=== PATIENT | female | born 1955 | race Caucasian/White ===

== ENCOUNTER → 2016-11-29 | Outpatient (CLI) | payer BC ==
[~2016-11-29] MED LIST: CERTAGEN PO; DOXYCYCLINE PO
--- NOTE | ~2016-11-29 | MY11 ---
[facility] A Service of [facility] & [facility] RADIOLOGY TEXT RESULTS PATIENT: YNES CAO LOCATION: [facility] : 59 UNIT #: [id number] AGE: [address]: Yas Bowling MD SEX: F ORDER DR: [id number] [facility] [address] [facility]. [address] [id number] O MR#: [id number] Acc #: [id number] NAME: YNES CAO : 1955 SEX: F STUDY DATE/TIME: 11/29/2016 7:39 UNIT: [facility] ROOM: STUDY DESCRIPTION: MY Mammogram Screening Dig Quinn Attending Physician: Yas Bowling M.D. Referring Physician: Yas Bowling M.D. Ordering Physician: Yas Bowling M.D. Primary Care Physician: No Primary Care Physician MEDICAL IMAGING REPORT This report is preliminary unless electronic signature is present EXAM Bilateral digital screening mammogram with CAD, 11/29/2016. HISTORY 61-year-old female for routine screening. No reported problems. No personal history of breast cancer. Family history positive in a paternal aunt. No surgeries. TECHNIQUE CC and MLO views of the breasts were obtained and reviewed with an FDA-approved CAD device. COMPARISON STUDIES 12/12/2015, 11/27/2015, 09/30/2014, 04/14/2013. FINDINGS Breast parenchyma is composed of scattered fibroglandular densities. The pattern is unchanged. There is a new 18-mm oval-shaped density in the upper outer right breast at middle third depth. This may represent interval development of a cyst. Suggest further evaluation with targeted ultrasound, as additional mammographic views are probably not going to yield additional diagnostic information. There is otherwise no new dominant nodule, mass, or suspicious cluster of microcalcifications. Benign-appearing nodularity otherwise present in both breasts, not significantly changed. IMPRESSION 18-mm oval-shaped nodular density in the upper outer right breast. Further evaluation with targeted ultrasound is recommended. Patients over the age of 40 are entered into a reminder system with target due date for the next mammogram. A result letter will also be sent to the [facility] A Service of [facility] & [facility] RADIOLOGY TEXT RESULTS PATIENT: YNES CAO LOCATION: [facility] : 59 UNIT #: [id number] AGE: [address]: Yas Bowling MD SEX: F ORDER DR: patient. BIRADS: 0 Incomplete; need additional imaging evaluation and/or prior mammograms for comparison. Dictated by... Faisal Miramontes M.D. THIS IS AN ELECTRONICALLY VERIFIED REPORT Faisal Miramontes M.D. at 11/29/2016 5:16 PM Jm TD: 11/29/2016 11:50 JOB #: [id number] MEDICAL IMAGING REPORT COPY
== END | disposition home or self-care (01) ==
LOC: CWCC 07:20
DX: Z12.31 Encounter for screening mammogram for malignant neoplasm of breast (principal); Z80.3 Family history of malignant neoplasm of breast; N63 Unspecified lump in breast
CPT/HCPCS: G0202

== ENCOUNTER → 2016-12-05 | Outpatient (CLI) | payer BC ==
--- NOTE | ~2016-12-05 | US24 ---
[facility] A Service of [facility] & [facility] RADIOLOGY TEXT RESULTS PATIENT: YNES CAO LOCATION: [facility] : 59 UNIT #: [id number] AGE: [address]: Yas Bowling MD SEX: F ORDER DR: [id number] [facility] [address] [place], [place] [address] [id number] O MR#: [id number] Acc #: [id number] NAME: YNES CAO : 1955 SEX: F STUDY DATE/TIME: 12/05/2016 12:53 UNIT: [facility] ROOM: STUDY DESCRIPTION: US Breast Unilateral Attending Physician: Yas Bowling M.D. Referring Physician: Yas Bowling M.D. Ordering Physician: Yas Bowling M.D. Primary Care Physician: Yas Bowling M.D. MEDICAL IMAGING REPORT This report is preliminary unless electronic signature is present EXAM Targeted ultrasound of the right breast 12/05/2016 INDICATIONS 61-year-old female recalled for ultrasound of the upper outer right breast secondary to a new asymmetry in the upper outer quadrant of the right breast on the screening mammogram performed 11/29/2016. TECHNIQUE Targeted ultrasound of the upper outer right breast was performed. COMPARISON Correlation is made with a recent mammogram of 11/29/2016 and prior mammogram 12/12/2015 FINDINGS Ultrasound findings: Right breast: The patient was initially scanned by the technologist and then rescanned in my presence. Imaging of the upper outer right breast with attention to the 9 o'clock position demonstrates a benign cyst measuring 11 x 11 x 7 mm corresponding to the nodular asymmetry in the same clock position of the right breast. The nodule actually measures about 12-13 mm on the prior mammogram, when allowing for superimposed breast tissue and imaging findings with ultrasound today are concordant in terms of location and size. The cyst has benign features and requires no additional follow up. Imaging of the remainder of the upper outer quadrant right breast is negative with exception of a tiny prominent duct or cyst in the 12 o'clock position right breast. Absent new or worsening symptoms in either breast, the patient should STS. [facility] A Service of [facility] & [facility] RADIOLOGY TEXT RESULTS PATIENT: YNES CAO LOCATION: [facility] : 59 UNIT #: [id number] AGE: [address]: Yas Bowling MD SEX: F ORDER DR: return for a screening mammogram in 1 year. Findings and recommendations were discussed with the patient. She has voiced understanding and agreement. IMPRE Ultrasound confirms the presence of a benign cyst measuring approximately 11 mm at 9 o'clock in the right breast. Imaging findings with mammography are concordant. Return to annual screening is recommended. See discussion above. BIRADS: 2 Benign findings. Dictated by... Faisal Miramontes M.D. THIS IS AN ELECTRONICALLY VERIFIED REPORT Faisal Miramontes M.D. at 12/06/2016 10:31 PM SHANDA/emeka TD: 12/05/2016 13:55 JOB #: [id number] MEDICAL IMAGING REPORT Page 1 of 1 COPY
== END | disposition home or self-care (01) ==
LOC: CWCC 12:37
DX: N60.01 Solitary cyst of right breast (principal)
CPT/HCPCS: 76641